=== PATIENT | male | born 1970 | race Caucasian/White ===

== ENCOUNTER → 2018-01-10 10:34 | Outpatient (CLI) | payer OTHER, SELFPAY ==
--- NOTE | 2018-01-10 10:43 | RAD_ITS ---
STUDY: X-RAY - ABDOMEN/PELVIS REASON FOR EXAM: Male, 47 years old. Postoperative evaluation. Left ureteral stent placement. TECHNIQUE: Single AP view of the abdomen / pelvis. COMPARISON: None. FINDINGS: A left ureteral stent is present. There is an unremarkable bowel gas pattern. There is no demonstrated free abdominal air. Multiple small calcifications projected over the left renal shadow, particularly in the lower pole. The largest of these is approximately 8 mm in widest diameter. Normal soft tissue structures. Normal visualized osseous structures. RAD/Abdomen Single View IMPRESSION: Multiple left calcifications projected over the lower pole of the left kidney. Left ureteral stent. Electronically Signed: Aron Regan MD at 12:14 EDT , Service support ,
== END ==
PROVIDERS: Referring Provider Urology; Visit Provider Urology
DX: N20.0 Calculus of kidney (principal)
CPT/HCPCS: 74018

== ENCOUNTER 2018-01-13 12:49 | Day surgery (SDC) | payer OTHER, SELFPAY ==
[2018-01-13 13:16] VITALS: BP 119/84; PULSE 74; RESP 16; TEMP 37; O2SAT 97; BMI 22.2
--- NOTE | 2018-01-13 16:29 | DCINST_ITS ---
Discharge Diet: Light diet - advance as tolerated Discharge Activity: Return to Normal Activity Call your doctor if your incision/area has: Continuous Slow Oozing, Sudden Increased Bleeding, Increased Pain/ Swelling, Increased Redness, Foul Smelling Discharge, Swelling at the incision site Call your doctor if you observe: Fever of 101 or Higher, Uncontrolled pain Suture Line Care: Avoid Pulling/Pushing, Avoid Pinching/Bending Allergies/Adverse Reactions: Allergies No Known Allergies Allergy (Verified 01/12/18 11:07) Medications to take at Discharge Hydrocodone/Acetaminophen [[place] 5-325 Tablet] 1 ea PO Q4H PRN PRN 5 Days #14 tab 01/13/18 The following prescriptions were given: Hydrocodone/Acetaminophen [[place]umford 5-325 Tablet] 1 ea PO Q4H PRN PRN 5 Days #14 tab PRN Reason: Pain Primary Care Physician: Care Physician,No Primary [Primary Care Provider] - Test Results: Test results from this visit will be discussed in further detail at your follow- up appointment, if applicable. Please Follow Up With: Tl Arriola MD When: in 2 weeks, please call to make an appointment.
[2018-01-13] MEDS: Cefazolin 2 GM in 0.9% Normal Saline 100 ML IV (16:37)
--- NOTE | 2018-01-13 17:37 | PCM.OPRPT ---
Report of Operation Date of Procedure: 01/13/18 Pre-Operative Diagnosis: Left kidney stones status post stent placement and ESWL Post-Operative Diagnosis: Same Surgery/Procedure Performed:: Second stage ESWL and removal of stent Description of Surgical Findings:: 47-year-old male underwent shockwave lithotripsy last week for large obstructing stone in the left proximal ureter at that point the stone broke up fairly well but not sufficiently a stent was placed he now comes back for second shockwave lithotripsy to break up the remaining fragments. 47-year-old male was placed on the operating room table underwent general anesthesia we then localize the stones in the kidney he had some fragments next to the stent in the ureter we treated this with 2000 shockwaves is broke up fairly well no more fragments were visible we then went to a collection in the lower pole of the kidney bunch of fragments in the lower pole this was also treated and then the absence of fragments in the upper part of the kidney. At the end of the treatment we gave a total of 3500 shockwaves to the ureter into the kidney on the left side with successful and adequate fragmentation of the stones. He then underwent cystoscopy and stent removal we prepped the penis and testicles in usual sterile fashion went in with a 21 Portuguese rigid cystourethroscope grabbed the existing stent with a grasper pulled out the meatus remove the stent then drained the bladder and patient anesthetic is currently being reversed he will see us back in a few weeks with an x-ray. Type of Anesthesia:: General Drains: stent removed - Admit VTE Documentation VTE Present on Admission: No VTE Mechan Device Prophylaxis: SCD's
[2018-01-13 17:46] VITALS: BP 119/84; BP 136/89; PULSE 59; RESP 16; TEMP 36.3; O2SAT 98
[2018-01-13 18:00] VITALS: BP 119/84; BP 133/87; PULSE 51; RESP 16; O2SAT 100
[2018-01-13 18:15] VITALS: BP 119/84; BP 124/84; PULSE 51; RESP 17; O2SAT 98
[2018-01-13 18:28] VITALS: BP 119/84; BP 125/82; PULSE 58; RESP 16; TEMP 36.8; O2SAT 54
[2018-01-13 20:01] VITALS: BP 119/84; BP 124/82; PULSE 58; RESP 16; TEMP 36.4; O2SAT 99
== END 2018-01-13 20:12 | disposition home or self-care (01) ==
LOC: SDC 12:52 → AC 12:52
PROVIDERS: Referring Provider Urology; Visit Provider Urology
PROC: 0TP98DZ Removal of Intraluminal Device from Ureter, Via Natural or Artificial Opening Endoscopic (ICD-10-PCS; CPT 50590; principal; 2018-01-13 14:40)
DX: N20.2 Calculus of kidney with calculus of ureter (principal)
CPT/HCPCS: 00873; 50590; 52310; J7120; J2405

== ENCOUNTER → 2018-01-31 15:58 | Outpatient (CLI) | payer OTHER, SELFPAY ==
--- NOTE | 2018-01-31 16:00 | RAD_ITS ---
STUDY: X-RAY - ABDOMEN/PELVIS REASON FOR EXAM: Male, 47 years old. Left-sided kidney stone with recent lithotripsy as well as stent placement and removal TECHNIQUE: Two AP supine views of the abdomen and pelvis. COMPARISON: None. FINDINGS: Normal visualized lung bases. There is an unremarkable bowel gas pattern. There is no demonstrated free abdominal air. The visualized liver, spleen and kidneys are grossly normal in size and morphology. Normal soft tissue structures. 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 RAD/Abdomen Single View IMPRESSION: No demonstrated nephrolithiasis. The bowel gas pattern is unremarkable. Electronically Signed: Nirav Arriaza MD at 13:21 EST , Service support ,
--- NOTE | 2018-01-31 16:30 | CALC_PTH ---
PATIENT: COLETTE CLIFFORD LOC: [facility] U#:[id number] AGE/SX: 54/M ROOM: RE01/31/[address]: Dr. Tl Arriola MD : 1970 BED: DIS: SPEC #: [id number] RECD: 02/01/18 12:42 STATUS: LA NENA TREVON #: [id number] BRIAN: 01/31/18 16:[address]: Tl Arriola DEPT: SURGICAL PATHOLOGY RECD BY: Sudarshan Mariee ENTERED: 02/01/18 12:42 SP TYPE: Calculi OTHR DR: No Primary Care Phys Tissues: CALCULI Procedures: Surgery Specimen Level I HEADER OPERATION: Not noted PRE-OP DIAGNOSIS: Kidney stones TISSUE SUBMITTED: Calculi GROSS DIAGNOSIS Fragments of stone, clinically kidney stones, submitted entirely for stone analysis. COMMENT The calculus is submitted in its entirety for chemical stone analysis. The results from this study will be reported separately. GROSS DESCRIPTION Received without fixative labeled with the patient name and designated stone analysis is a specimen that consists of multiple irregular fragments of brownish/blackish stone measuring in aggregate 3 x 0.5 x 0.3 cm. The specimen is submitted in its entirety for chemical stone analysis. PANCHO:gildardo 02/01/18 CPT: 19754
[2018-02-10 16:09] LABS: Ca Oxalate, Monohydrate 97 % (.)
== END ==
PROVIDERS: Referring Provider Urology; Visit Provider Urology
DX: N20.0 Calculus of kidney (principal)
CPT/HCPCS: 74018; 82360; 88300

== ENCOUNTER → 2018-03-29 13:06 | Outpatient (CLI) | payer OTHER, SELFPAY ==
[2018-03-29 13:54] LABS: Anion Gap 7 (5-15); BUN 14 mg/dL (7-18); BUN/Creat Ratio 13.7 RATIO (10-20); Calcium,Total 8.5 mg/dL (8.5-10.1); Chloride 104 mmol/L (98-107); Creatinine, Serum 1.02 mg/dL (0.70-1.30); EST Glomerular Filtration Rate 83 mL/min (>60); Est Glom Filt Rate - Afr Amer 101 mL/min (>60); Glucose 92 mg/dL (74-106); Potassium 3.7 mmol/L (3.5-5.1); Sodium Level 140 mmol/L (136-145)
[2018-03-29 14:01] LABS: PTHIN 34.6 pg/mL (18.4-80.1)
== END ==
PROVIDERS: Referring Provider Urology; Visit Provider Urology
DX: R82.998 Other abnormal findings in urine (principal)
CPT/HCPCS: 36415; 80048; 83970

== ENCOUNTER → 2019-03-12 13:34 | Outpatient (CLI) | payer OTHER, SELFPAY ==
--- NOTE | 2019-03-12 13:36 | RAD_ITS ---
STUDY: X-RAY - ABDOMEN/PELVIS REASON FOR EXAM: Male, 48 years old. 1 year follow up to kidney stone removal TECHNIQUE: 3 views of the abdomen COMPARISON: 01/31/2018 FINDINGS: Normal visualized lung bases. There is an unremarkable bowel gas pattern. There is no demonstrated free abdominal air. No evidence of convincing renal stone along the kidneys bilaterally or in the region of the bilateral ureters. The visualized liver, spleen and kidneys are grossly normal in size and morphology. Normal soft tissue structures. Unremarkable visualized osseous structures. RAD/Abdomen Single View IMPRESSION: No evidence of convincing renal stone along the kidneys bilaterally or in the region of the bilateral ureters. Electronically Signed: Rosalio Alas MD at 18:25 EST Tel [phone], Service support ,
== END ==
PROVIDERS: Referring Provider Urology; Visit Provider Urology
DX: N20.0 Calculus of kidney (principal)
CPT/HCPCS: 74018